=== PATIENT | female | born 1990 | race Caucasian/White ===

== ENCOUNTER 2017-04-02 16:12 | Emergency (ER) | payer OTHER ==
[~2017-04-02] VITALS: Ht 160 cm; Wt 115.0 kg
[~2017-04-02 16:12] MED LIST: AMOX500C2 PO; BACDS PO; CLIN150C2 PO; CLIN300C71 PO; FLUT16SP10 NAS; HYDR-3965 PO; HYDR1TAB PO; IBUP-1051 PO; IBUP-1984 PO; NAPR-1144 PO; NO HOME MEDS; ONDA4TAB12 PO; ONDA4TAB6 PO; PENI500T2 PO
[2017-04-02] MEDS ORDERED: PRED20TA PO (18:10)
[2017-04-02 18:32] VITALS: BP 132/65
== END 2017-04-02 18:33 | disposition home or self-care (01) ==
LOC: ER 16:14
DX: R21 Rash and other nonspecific skin eruption (principal); F17.200 Nicotine dependence, unspecified, uncomplicated; Z79.2 Long term (current) use of antibiotics
CPT/HCPCS: 99283

== ENCOUNTER 2017-07-25 16:34 | Emergency (ER) | payer MEDICAID, OTHER ==
[~2017-07-25] VITALS: Ht 160 cm; Wt 118.0 kg
[2017-07-25 17:12] LABS: CLARITY,URINE SLIGHTLY CLOUDY (Clear); COLOR,URINE YELLOW (Yellow); GLUCOSE, URINE NEGATIVE (Neg); KETONES,URINE NEGATIVE (Neg); LEUKOCYTE ESTERASE ,URINE SMALL (Neg); NITRITES, URINE NEGATIVE (Neg); OCCULT BLOOD,URINE LARGE (Neg); PROTEIN,URINE 100 mg/dl (Neg); UROBILINOGEN,URINE 0.2 E.U/dL (0.2-1.0)
[2017-07-25 17:13] LABS: URINE HCG NEGATIVE (NEG)
[2017-07-25 17:17] LABS: UA COLLECTION TYPE VOIDED
[2017-07-25 17:19] LABS: BACTERIA,URINE FEW /HPF (Neg); RBC,URINE 50-100 /HPF (0-2); SQUAMOUS EPITHELIAL CELL,UR MANY /LPF (FEW); WBC,URINE 20-30 /HPF (0-4)
[2017-07-25 17:20] LABS: MUCUS STRANDS MODERATE /LPF (Neg)
[2017-07-25] MEDS ORDERED: HYDROcodone/acetaminophen 10/325mg tab PO ONE (17:20)
[2017-07-25] MEDS ORDERED: ondansetron 4mg rapidly disintigrating tab PO ONE (17:20)
[2017-07-25 17:25] LABS: BASOPHILS % (AUTO) 0.3 % (0-1); EOSINOPHILS # (AUTO) 0.3 X10'3 (0-0.9); EOSINOPHILS % (AUTO) 2.6 % (0-6); HEMATOCRIT 40.8 % (35.0-45.0); LYMPHOCYTES # (AUTO) 2.2 X10'3 (1.1-4.8); LYMPHOCYTES % (AUTO) 17.6 % (21-51); MEAN CORPUSCULAR HGB CONC 34.4 % (33.0-36.5); MEAN CORPUSCULAR VOLUME 84.3 FL (78-98); MEAN PLATELET VOLUME 6.9 FL (7.4-10.4); MONOCYTES # (AUTO) 0.9 X10'3 (0-0.9); MONOCYTES % (AUTO) 7.2 % (2-12); NEUTROPHILS # (AUTO) 9.2 X10'3 (1.8-7.7); NEUTROPHILS % (AUTO) 72.3 % (42-75); PLATELET COUNT 500 X10'3 (140-440); RED BLOOD COUNT 4.84 X10'6 (4.20-5.60); RED CELL DISTRIBUTION WIDTH 13.3 % (11.5-14.5); WHITE BLOOD COUNT 12.7 X10'3 (4.5-11.0)
[2017-07-25 17:37] LABS: ALANINE AMINOTRANSFERASE 44 U/L (12-78); ALBUMIN 3.5 G/DL (3.4-5.0); ALBUMIN/GLOBULIN RATIO 0.8 (1.1-1.5); ALKALINE PHOSPHATASE 143 IU/L (46-116); ANION GAP 10 (8-16); ASPARTATE AMINO TRANSFERASE 29 U/L (10-37); BILIRUBIN,TOTAL 0.4 MG/DL (0.1-1.0); BLOOD UREA NITROGEN 14 MG/DL (7-18); CALCIUM 9.2 MG/DL (8.5-10.1); CHLORIDE 104 MMOL/L (99-107); GLUCOSE 104 MG/DL (70-104); LIPASE 110 U/L (73-393); POTASSIUM 3.9 MMOL/L (3.5-5.1); SODIUM 139 MMOL/L (135-145); TOTAL CARBON DIOXIDE 24.7 MMOL/L (24-32); TOTAL PROTEIN 7.9 G/DL (6.4-8.2); eGFR 68 ML/MIN
[2017-07-25 18:42] LABS: CLARITY,URINE Cloudy (Clear); COLOR,URINE Yellow (Yellow); GLUCOSE, URINE Negative (Neg); KETONES,URINE Trace mg/dl (Neg); LEUKOCYTE ESTERASE ,URINE Trace (Neg); NITRITES, URINE Negative (Neg); OCCULT BLOOD,URINE Moderate (Neg); PROTEIN,URINE Negative (Neg)
[2017-07-25 18:53] LABS: UA COLLECTION TYPE STRAIGHT CATH
[2017-07-25 18:55] LABS: BACTERIA,URINE FEW /HPF (Neg); MUCUS STRANDS MANY /LPF (Neg); RBC,URINE 20-50 /HPF (0-2); SQUAMOUS EPITHELIAL CELL,UR FEW /LPF (FEW); WBC,URINE 0-4 /HPF (0-4)
[2017-07-25 21:47] VITALS: BP 140/71
== END 2017-07-25 21:51 | disposition home or self-care (01) ==
LOC: ER 16:35
DX: R10.31 Right lower quadrant pain (principal); N92.6 Irregular menstruation, unspecified; Z79.2 Long term (current) use of antibiotics; Z79.899 Other long term (current) drug therapy
CPT/HCPCS: 36415; 76830; 76856; 80053; 81001; 81025; 83690; 85025; 87077; 87088; 87186; 99285

== ENCOUNTER 2018-04-09 10:45 | Emergency (ER) | payer MEDICAID ==
[~2018-04-09] VITALS: Ht 160 cm; Wt 109.1 kg
[~2018-04-09 10:45] MED LIST changes: -AMOX500C2 PO; -BACDS PO; -CLIN150C2 PO; -CLIN300C71 PO; -FLUT16SP10 NAS; -HYDR-3965 PO; -HYDR1TAB PO; -IBUP-1051 PO; -NAPR-1144 PO; -ONDA4TAB12 PO; -ONDA4TAB6 PO; -PENI500T2 PO
[2018-04-09 11:12] VITALS: BP 142/96
== END 2018-04-09 17:33 | disposition left against medical advice (07) ==
LOC: ER 10:47
DX: R05 Cough (principal); J00 Acute nasopharyngitis [common cold]; R09.89 Other specified symptoms and signs involving the circulatory and respiratory systems; Z53.21 Procedure and treatment not carried out due to patient leaving prior to being seen by health care provider

== ENCOUNTER 2018-10-01 11:59 | Emergency (ER) | payer MEDICAID ==
[~2018-10-01] VITALS: Ht 157.5 cm; Wt 111.8 kg
[~2018-10-01 11:59] MED LIST changes: -IBUP-1984 PO
[2018-10-01 12:35] LABS: URINE HCG NEGATIVE (NEG)
[2018-10-01 12:43] LABS: CLARITY,URINE CLEAR (Clear); COLOR,URINE YELLOW (Yellow); GLUCOSE, URINE NEGATIVE (Neg); KETONES,URINE NEGATIVE (Neg); LEUKOCYTE ESTERASE ,URINE NEGATIVE (Neg); NITRITES, URINE NEGATIVE (Neg); OCCULT BLOOD,URINE NEGATIVE (Neg); PROTEIN,URINE NEGATIVE (Neg); UROBILINOGEN,URINE 0.2 E.U/dL (0.2-1.0)
[2018-10-01 12:45] LABS: UA COLLECTION TYPE CLN CATCH MIDSTREAM
[2018-10-01] MEDS ORDERED: fluconazole 150mg tablet PO ONE (13:55)
[2018-10-01] MEDS ORDERED: FLUC150T66 PO (14:22)
[2018-10-01 14:38] VITALS: BP 120/82
== END 2018-10-01 14:41 | disposition home or self-care (01) ==
LOC: ER 12:00
DX: B37.9 Candidiasis, unspecified (principal); N76.89 Other specified inflammation of vagina and vulva; F17.200 Nicotine dependence, unspecified, uncomplicated; F12.90 Cannabis use, unspecified, uncomplicated; F10.99 Alcohol use, unspecified with unspecified alcohol-induced disorder; Y90.9 Presence of alcohol in blood, level not specified
CPT/HCPCS: 81003; 81025; 87210; 99283; Q0112

== ENCOUNTER 2020-09-25 19:24 | Emergency (ER) | payer MEDICAID ==
[~2020-09-25] VITALS: Ht 157.5 cm; Wt 115.0 kg
[2020-09-25 19:43] VITALS: BP 164/118
[2020-09-25 20:31] LABS: CLARITY,URINE SLIGHTLY CLOUDY (Clear); COLOR,URINE ORANGE (Yellow); KETONES,URINE 15 mg/dl (Neg); LEUKOCYTE ESTERASE ,URINE NEGATIVE (Neg); OCCULT BLOOD,URINE NEGATIVE (Neg)
[2020-09-25 20:38] LABS: UA COLLECTION TYPE CLN CATCH MIDSTREAM
[2020-09-25 20:39] LABS: GLUCOSE, URINE 100 mg/dl (Neg); NITRITES, URINE POSITIVE (Neg); PROTEIN,URINE 30 mg/dl (Neg)
[2020-09-25 20:44] LABS: BACTERIA,URINE NONE SEEN /HPF (Neg); RBC,URINE NONE SEEN /HPF (0-2); SQUAMOUS EPITHELIAL CELL,UR NONE SEEN /LPF (FEW); WBC,URINE NONE SEEN /HPF (0-4)
[2020-09-25] MEDS ORDERED: CEPH-585 PO (22:36)
== END 2020-09-25 22:42 | disposition home or self-care (01) ==
LOC: ER 19:25
DX: N39.0 Urinary tract infection, site not specified (principal); R10.2 Pelvic and perineal pain; F12.90 Cannabis use, unspecified, uncomplicated; Z72.89 Other problems related to lifestyle; Z88.6 Allergy status to analgesic agent; Z79.2 Long term (current) use of antibiotics
CPT/HCPCS: 81001; 99283